=== PATIENT | male | born 1955 | race Two or more races ===

== ENCOUNTER 2017-08-02 14:13 | Emergency (ER) | payer OTHER ==
[2017-08-02] MEDS ORDERED: Ketorolac INJ* 30 MG/ML 1 ML VIAL IM ONE (16:26)
[2017-08-02] MEDS ORDERED: diPHENhydraMINE PO* 50 MG PO ONE (16:26)
[2017-08-02 17:35] LABS: Hematocrit 42 % (42-52); Hemoglobin 14.1 g/dl (14.0-18.0); Mean Corpuscular HGB Conc 34 g/dl (31-36); Mean Corpuscular Hemoglobin 31 pg (27-31); Mean Corpuscular Volume 91 fL (80-94); Mean Platelet Volume 8 um3 (7.4-10.4); Red Cell Distribution Width 14 % (10.5-15); White Blood Count 7.7 10^3/ul (3.5-10.8)
--- NOTE | 2017-08-02 17:35 | RAD ---
Indication: Scrotal and penile swelling. 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 Comparison: No relevant prior exams available on the [facility] [place] for comparison. Technique: Scrotal ultrasound. Report: Bilateral scrotal wall thickening. No visualized loculated scrotal wall abscess collection. 4.6 x 2.2 x 3.2 cm RIGHT testicle. 3.8 x 1.9 x 3.1 cm LEFT testicle. Normal bilateral testicular echotexture and symmetric normal range vascularity. No intratesticular lesions evident. Unremarkable 1.3 x 1.4 cm RIGHT epididymis head and 1.0 x 1.2 cm LEFT epididymis head. Physiologic small volume of scrotal fluid bilaterally. On the LEFT two small scrotoliths are visualized measuring up to 3 mm maximum dimension, a benign finding. IMPRESSION: 1. Significant scrotal wall thickening without visualized soft tissue plane abscess collection. 2. No evidence for epididymo-orchitis or testicular torsion.
[2017-08-02 17:37] LABS: Urine Bilirubin Negative (Negative); Urine Glucose Negative (Negative); Urine Nitrite Negative (Negative)
[2017-08-02 17:49] LABS: Albumin 3.9 g/dL (3.2-5.2); BUN/Creatinine Ratio 19.4 (8-20); C Reactive Protein 14.15 mg/L (< 5.00); Calcium 8.7 mg/dL (8.6-10.3); EGFR Non-African American 83.2 (>60); Globulin 2.9 g/dL (2-4); Potassium 3.8 mmol/L (3.5-5.0); Total Bilirubin 0.3 mg/dL (0.2-1.0); Total Protein 6.8 g/dL (6.4-8.9)
[2017-08-02] MEDS ORDERED: predniSONE TAB* 20 MG PO ONE (19:02)
[2017-08-02 19:32] VITALS: BP 150/86
--- NOTE | 2017-08-02 23:15 | ED ---
Edis Arnett Thomas, scribed for Rashida Abdullahi MD on 08/02/17 at 1603 . GI/ HPI - HPI Summary HPI Summary: The pt is a 61 y/o M presenting to the ED c/o swelling to his testicles that began five days ago but worsened yesterday night. There is also pruritus on his testicles, arms, and scrotum. There is no pruritus on his legs, chest, or any other areas. For the pruritus, he did take an OTC antifungal and hydrocortisone cream to no relief of his symptoms. Pt additionally c/o low back pain (with a Hx of DDD). He also has two dark black spots with irregular borders. There is one at the base of the penis on the front that measures 0.5 cm and another on the side that measures 0.3 cm in diameter. 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 Pt denies penile discharge, dysuria, and hematuria. He takes Lisinopril daily. PMHx: DDD (lower back), sciatica, HTN, borderline diabetes. PSHx: benign tumor removals in neck. 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 FHx: CAD, skin CA. Patients medications reviewed this visit. - History of Current Complaint Chief Complaint: EDGeneral Time Seen by Provider: 08/02/17 15:59 Stated Complaint: TESTICLE ITCH/SWELLING Hx Obtained From: Patient Onset/Duration: Started Days Ago - 5, Still Present, Worse Since - last night Timing: Constant Severity: Severe - testicles are approximately 3x of normal size Location of Pain: Other - Low back pain Additional Locations for Males: Scrotum - swollen to 3x of size Associated Signs and Symptoms: Positive: Back Pain - attributed to chronic DDD in lower back, Other: - POS: swelling to scrotum (onset 5 days ago). Negative: Discharge, Hematuria, Dysuria Additional Signs & Symptoms: Negative: Penile Discharge Aggravating Factor(s): Nothing Alleviating Factor(s): Nothing - Allergy/Home Medications Allergies/Adverse Reactions: Allergies Allergy/AdvReac Type Severity Reaction Status Date / Time No Known Allergies Allergy Verified 01/07/14 15:09 PMH/Surg Hx/FS Hx/Imm Hx Previously Healthy: No Endocrine/Hematology History: Denies: Hx Diabetes Cardiovascular History: Reports: Hx Angina, Hx Hypertension - PT TREATED WITH MEDICATION Denies: Hx Pacemaker/ICD Respiratory History: Reports: Hx Chronic Obstructive Pulmonary Disease (COPD), Other Respiratory Problems/Disorders - 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 Denies: Hx Asthma GI History: Reports: Hx Gastroesophageal Reflux Disease - HAS HAD IN THE PAST, NOT CURRENTLY TAKING RX History: Denies: Hx Dialysis, Hx Renal Disease Musculoskeletal History: Reports: Hx Arthritis - BACK, NECK, AND SPINE, Other Musculoskeletal History - SCIATICA BITAL, FREQUENTLY Sensory History: Reports: Hx Hearing Problem Denies: Hx Cataracts, Hx Contacts or Glasses, Hx Glaucoma, Hx Hearing Aid Opthamlomology History: Denies: Hx Cataracts, Hx Contacts or Glasses, Hx Glaucoma Psychiatric History: Reports: Hx Depression - DEPRESSION FOR LONG TIME, TAKES RX Denies: Hx Panic Disorder - Surgical History Surgery Procedure, Year, and Place: 08/06 ORIF LEFT WRIST- [facility] tumors removed from neck-benign Hx Anesthesia Reactions: No Infectious Disease History: Denies: Traveled Outside the [place] in Last 30 Days - Family History Known Family History: Positive: Cardiac Disease, Other - POS: skin CA - Social History Alcohol Use: Daily Alcohol Amount: 6 pk today Substance Use Type: Reports: None Substance Use Comment - Amount & Last Used: 15 YEARS CLEAN,COCAINE. Smoking Status (MU): Heavy Every Day Tobacco Smoker Type: Cigarettes Amount Used/How Often: 2-5/DAY Length of Time of Smoking/Using Tobacco: 49 YEARS Have You Smoked in the Last Year: Yes Review of Systems Negative: Fever Positive: other - POS: scrotal swelling (onset 5 days ago). Negative: dysuria, discharge, hematuria Positive: Other - POS: low back pain Positive: Other - POS: pruritus (to testicles, arms, and scrotum), two dark black spots with irregular borders All Other Systems Reviewed And Are Negative: Yes Physical Exam Triage Information Reviewed: Yes Vital Signs On Initial Exam: Initial Vitals Temp Pulse Resp BP Pulse Ox 98.8 F 82 16 151/98 99 08/02/17 14:20 08/02/17 14:20 08/02/17 14:20 08/02/17 14:20 08/02/17 14:20 Vital Signs Reviewed: Yes Appearance: Positive: Well-Appearing, Well-Nourished, Pain Distress Skin: Positive: Warm, Skin Color Reflects Adequate Perfusion, Other - Two dark black spots with irregular borders. There is one at the base of the penis on the front that measures 0.5 cm and another on the side that measures 0.3 cm in diameter. Head/Face: Positive: Normal Head/Face Inspection Eyes: Positive: Conjunctiva Clear ENT: Positive: Normal ENT inspection Neck: Positive: Supple Respiratory/Lung Sounds: Positive: Clear to Auscultation, Breath Sounds Present , Other - No respiratory distress Cardiovascular: Positive: RRR, Pulses are Symmetrical in both Upper and Lower Extremities, Other - Brisk cap refill. Negative: Murmur Abdomen Description: Positive: Nontender, Soft Bowel Sounds: Positive: Present Male Genital Exam: Positive: other - Scrotal swelling Musculoskeletal: Positive: Strength/ROM Intact Neurological: Positive: Sensory/Motor Intact, Alert, Oriented to Person Place, Time, Facial Symmetry, Speech Normal Psychiatric: Positive: Normal Diagnostics - Vital Signs Vital Signs Temp Pulse Resp BP Pulse Ox 08/02/17 14:20 98.8 F 82 16 151/98 99 - Laboratory Lab Results: Lab Results 08/02/17 08/02/17 08/02/17 Range/Units 17:20 17:25 17:25 WBC 7.7 (3.5-10.8) 10^3/ul RBC 4.60 (4.0-5.4) 10^6/ul Hgb 14.1 (14.0-18.0) g/dl Hct 42 (42-52) % MCV 91 (80-94) fL MCH 31 (27-31) pg MCHC 34 (31-36) g/dl RDW 14 (10.5-15) % Plt Count 218 (150-450) 10^3/ul MPV 8 (7.4-10.4) um3 Neut % (Auto) 73.2 (38-83) % Lymph % (Auto) 11.9 L (25-47) % [place] % (Auto) 9.6 H (1-9) % Eos % (Auto) 4.8 (0-6) % Baso % (Auto) 0.5 (0-2) % Absolute Neuts (auto) 5.7 (1.5-7.7) 10^3/ul Absolute Lymphs (auto) 0.9 L (1.0-4.8) 10^3/ul Absolute Monos (auto) 0.7 (0-0.8) 10^3/ul Absolute Eos (auto) 0.4 (0-0.6) 10^3/ul Absolute Basos (auto) 0 (0-0.2) 10^3/ul Absolute Nucleated RBC 0 10^3/ul Nucleated RBC % 0 Sodium 136 (133-145) mmol/L Potassium 3.8 (3.5-5.0) mmol/L Chloride 105 (101-111) mmol/L Carbon Dioxide 26 (22-32) mmol/L Anion Gap 5 (2-11) mmol/L BUN 18 (6-24) mg/dL Creatinine 0.93 (0.67-1.17) mg/dL Est GFR ( Amer) 107.0 (>60) Est GFR (Non-Af Amer) 83.2 (>60) BUN/Creatinine Ratio 19.4 (8-20) Glucose 101 H (70-100) mg/dL Lactic Acid (0.5-2.0) mmol/L Calcium 8.7 (8.6-10.3) mg/dL Total Bilirubin 0.30 (0.2-1.0) mg/dL AST 19 (13-39) U/L ALT 16 (7-52) U/L Alkaline Phosphatase 54 (34-104) U/L C-Reactive Protein 14.15 H (< 5.00) mg/L Total Protein 6.8 (6.4-8.9) g/dL Albumin 3.9 (3.2-5.2) g/dL Globulin 2.9 (2-4) g/dL Albumin/Globulin Ratio 1.3 (1-3) Urine Color Yellow Urine Appearance Clear Urine pH 6.0 (5-9) Ur Specific [place] 1.024 (1.010-1.030) Urine Protein Negative (Negative) Urine Ketones Negative (Negative) Urine Blood Negative (Negative) Urine Nitrate Negative (Negative) Urine Bilirubin Negative (Negative) Urine Urobilinogen Negative (Negative) Ur Leukocyte Esterase Negative (Negative) Urine Glucose Negative (Negative) 08/02/17 Range/Units 17:25 WBC (3.5-10.8) 10^3/ul RBC (4.0-5.4) 10^6/ul Hgb (14.0-18.0) g/dl Hct (42-52) % MCV (80-94) fL MCH (27-31) pg MCHC (31-36) g/dl RDW (10.5-15) % Plt Count (150-450) 10^3/ul MPV (7.4-10.4) um3 Neut % (Auto) (38-83) % Lymph % (Auto) (25-47) % [place] % (Auto) (1-9) % Eos % (Auto) (0-6) % Baso % (Auto) (0-2) % Absolute Neuts (auto) (1.5-7.7) 10^3/ul Absolute Lymphs (auto) (1.0-4.8) 10^3/ul Absolute Monos (auto) (0-0.8) 10^3/ul Absolute Eos (auto) (0-0.6) 10^3/ul Absolute Basos (auto) (0-0.2) 10^3/ul Absolute Nucleated RBC 10^3/ul Nucleated RBC % Sodium (133-145) mmol/L Potassium (3.5-5.0) mmol/L Chloride (101-111) mmol/L Carbon Dioxide (22-32) mmol/L Anion Gap (2-11) mmol/L BUN (6-24) mg/dL Creatinine (0.67-1.17) mg/dL Est GFR ( Amer) (>60) Est GFR (Non-Af Amer) (>60) BUN/Creatinine Ratio (8-20) Glucose (70-100) mg/dL Lactic Acid 0.8 (0.5-2.0) mmol/L Calcium (8.6-10.3) mg/dL Total Bilirubin (0.2-1.0) mg/dL AST (13-39) U/L ALT (7-52) U/L Alkaline Phosphatase (34-104) U/L C-Reactive Protein (< 5.00) mg/L Total Protein (6.4-8.9) g/dL Albumin (3.2-5.2) g/dL Globulin (2-4) g/dL Albumin/Globulin Ratio (1-3) Urine Color Urine Appearance Urine pH (5-9) Ur Specific [place] (1.010-1.030) Urine Protein (Negative) Urine Ketones (Negative) Urine Blood (Negative) Urine Nitrate (Negative) Urine Bilirubin (Negative) Urine Urobilinogen (Negative) Ur Leukocyte Esterase (Negative) Urine Glucose (Negative) Result Diagrams: 08/02/17 17:25 08/02/17 17:25 Lab Statement: Any lab studies that have been ordered have been reviewed, and results considered in the medical decision making process. - Additional Comments Diagnostic Additional Comments: Testicular US. Interpreted by radiologist. Impression: 1. Significant scrotal wall thickening without visualized soft tissue plane abscess collection. 2. No evidence for epididymo-orchitis or testicular torsion. ED Physician has reviewed this report and agrees. GIGU Course/Dx - Course Assessment/Plan: The pt presents with swelling to his testicles that began five days ago but worsened yesterday night. There is also pruritus on his testicles, arms, and scrotum. Pt additionally c/o low back pain (with a Hx of DDD). He also has two dark black spots with irregular borders in his genital region. Per nursing documentation, he was In the ED course the patient was given Toradol, Prednisone, and Benadryl. Bloodwork shows CRP 14.15. Testicular US reveals 1. Significant scrotal wall thickening without visualized soft tissue plane abscess collection. 2. No evidence for epididymo-orchitis or testicular torsion. ED Physician has reviewed this report and agrees. I consulted with Dr. Whatley, urology, who recommends a Testicular US. The patient is diagnosed with scrotal and penile edema, scrotal wall thickening, black penile lesions, and contact dermatitis due to poison rita. He is stable and discharged home. He will follow up with urology. He is agreeable to this plan. - Diagnoses Provider Diagnoses: Contact dermatitis due to poison rita, scrotal wall thickening, Scrotal and penile edema, Black penile lesions - Physician Notifications Discussed Care Of Patient With: Dustin Whatley Time Discussed With Above Provider: 16:34 Instructed by Provider To: Other - I consulted with Dr. Whatley, urology, who recommends a Testicular US. Discharge - Discharge Plan Condition: Stable Disposition: HOME Prescriptions: predniSONE TAB* [Deltasone TAB*] 40 mg PO DAILY #10 tab Patient Education Materials: Poison Rita (ED) Referrals: Dustin Whatley MD [Medical Doctor] - 3 Days Efrain Chaidez MD [Primary Care Provider] - Additional Instructions: The ultrasound does not show any serious problem with your testicles or scrotum. The itching and swelling are likely from poison rita or poison oak that you contracted while you were in the [place]. You may continue to use the over the counter creams that you started yesterday. We also gave you toradol 30mg injectable for your back pain, benadryl 50mg for the itching and prednisone 60mg for the swelling. You should continue benadryl 50mg every 4-6 hrs for at least the next 48 hrs ( so 50mg four times a day) and take the prednisone 40mg daily for the next 5 days. Elevate the scrotum on a pillow. You may try ice. Follow up with urology, Dr. Whatley if no improvement. Return to the ER if any new or worsening symptoms. The documentation as recorded by the Edis de luna Thomas accurately reflects the service I personally performed and the decisions made by me, Rashida Abdullahi MD.
== END 2017-08-02 19:30 | disposition home or self-care (01) ==
LOC: ED 14:13
DX: L23.7 Allergic contact dermatitis due to plants, except food (principal); L98.9 Disorder of the skin and subcutaneous tissue, unspecified; N50.89 Other specified disorders of the male genital organs; I10 Essential (primary) hypertension; J44.9 Chronic obstructive pulmonary disease, unspecified; K21.9 Gastro-esophageal reflux disease without esophagitis; M19.90 Unspecified osteoarthritis, unspecified site; F17.210 Nicotine dependence, cigarettes, uncomplicated; R73.03 Prediabetes; M54.30 Sciatica, unspecified side; M51.36 Other intervertebral disc degeneration, lumbar region
CPT/HCPCS: 36415; 76870; 80053; 81003; 83605; 85025; 86140; 87491; 87591; 99283; A9270-GY; J1885; J7512

== ENCOUNTER 2019-01-17 05:26 | Emergency (ER) | payer OTHER ==
[2019-01-17] MEDS ORDERED: diPHENhydraMINE IV* 50 MG/ML 1 ml VIAL (BENADRYL) IV ONE (05:34)
[2019-01-17] MEDS ORDERED: EPINEPHRINE 1 MG/ML 1 ML VIAL IM ONE (05:35)
[2019-01-17] MEDS ORDERED: predniSONE TAB* 20 MG PO ONE (05:35)
[2019-01-17] MEDS ORDERED: Famotidine IV* 10 MG/ML 2 ML (20 mg) IV SLOW PU ONE (05:35)
[2019-01-17] MEDS ORDERED: Famotidine IV* 10 MG/ML 2 ML (20 mg) ONE (05:42)
[2019-01-17] MEDS ORDERED: EPINEPHRINE 1 MG/ML 1 ML VIAL ONE (05:42)
[2019-01-17] MEDS ORDERED: diPHENhydraMINE IV* 50 MG/ML 1 ml VIAL (BENADRYL) ONE (05:42)
--- NOTE | 2019-01-17 05:46 | ED ---
Allergic Reaction/Systemic - HPI Summary HPI Summary: A 63 y/o male presents to [facility] with a chief complaint of a possible allergic reaction the morning of 01/17/19. The patient claims that he was asleep and woke up itching. He reports that he has had this happen before. He denies N/V/D or abdominal pain. He also c/o chest tightness and SOB. Per nurses note, the patient rated his pain as a 5/10 in severity. Vital signs while in room HR: 113 bpm, O2 Sat 96. - History of Current Complaint Chief Complaint: EDAllergicReaction Time Seen by Provider: 01/17/19 05:32 Hx Obtained From: Patient Onset/Duration: Sudden Onset, Started minutes ago, Still Present Timing: Constant, Lasting Minutes Character: Pruritus Aggravating Factor(s): Nothing Alleviating Factor(s): Nothing Associated Signs And Symptoms: Negative: Abdominal Pain, Nausea, Vomiting - Allergies/Home Medications Allergies/Adverse Reactions: Allergies Allergy/AdvReac Type Severity Reaction Status Date / Time No Known Allergies Allergy Verified 11/04/17 09:12 PMH/Surg Hx/FS Hx/Imm Hx Endocrine/Hematology History: Denies: Hx Diabetes - pre-diabetes, not on medication Cardiovascular History: Reports: Hx Angina, Hx Hypercholesterolemia, Hx Hypertension - PT TREATED WITH MEDICATION Denies: Hx Pacemaker/ICD Respiratory History: Reports: Hx Chronic Obstructive Pulmonary Disease (COPD), Other Respiratory Problems/Disorders - 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 Denies: Hx Asthma GI History: Reports: Hx Gastroesophageal Reflux Disease History: Denies: Hx Dialysis, Hx Renal Disease Musculoskeletal History: Reports: Hx Arthritis - BACK, NECK, AND SPINE; cervical spine surgery, Other Musculoskeletal History - SCIATICA Sensory History: Reports: Hx Hearing Problem Denies: Hx Cataracts, Hx Contacts or Glasses, Hx Glaucoma, Hx Hearing Aid Opthamlomology History: Denies: Hx Cataracts, Hx Contacts or Glasses, Hx Glaucoma Neurological History: Reports: Other Neuro Impairments/Disorders - PAIN CLINIC PT Psychiatric History: Reports: Hx Depression, Hx Substance Abuse - former cocaine , clean x 15 yrs Denies: Hx Panic Disorder - Surgical History Surgery Procedure, Year, and Place: 08/06 ORIF LEFT WRIST- [facility] tumors removed from neck-benign. cervical spine surgery "for pinched nerves" 2013 - [place] Hx Anesthesia Reactions: No - Family History Known Family History: Positive: Cardiac Disease, Other - POS: skin CA - Social History Alcohol Use: None Substance Use Type: Reports: None Substance Use Comment - Amount & Last Used: 15 YEARS CLEAN,COCAINE. Smoking Status (MU): Light Every Day Tobacco Smoker Type: Cigarettes Amount Used/How Often: 5-6 cig/week Length of Time of Smoking/Using Tobacco: 49 YEARS Have You Smoked in the Last Year: Yes Review of Systems Positive: Other - positive: chest tightness Positive: Shortness Of Breath Negative: Abdominal Pain, Vomiting, Diarrhea, Nausea Positive: Other - itching All Other Systems Reviewed And Are Negative: Yes Physical Exam - Summary Physical Exam Summary: Appearance: Well-appearing, Well-nourished, lying in bed comfortably Skin: diffuse urticarial trunk lower, extremities and neck Eyes: sclera anicteric, no conjunctival pallor ENT: mucous membranes moist, pharynx appears normal Neck: Supple, nontender Respiratory: Clear to auscultation, no signs of respiratory distress Cardiovascular: Normal S1, S2. No murmurs. Normal distal pulses in tibial and radial bilaterally. Abdomen: Soft, nontender, normal active bowel sounds present Musculoskeletal: Normal, Strength/ROM Intact Neurological: A&Ox3, awake and alert, mentation is normal, speech is fluent and appropriate Psychiatric: affect is normal, does not appear anxious or depressed Triage Information Reviewed: Yes Vital Signs Reviewed: Yes Allergic Reaction Course/Dx - Course Course Of Treatment: A 63 y/o male presents to [facility] with a chief complaint of a possible allergic reaction the morning of 01/17/19. The patient claims that he was asleep and woke up itching. He reports that he has had this happen before. He denies N/V/D or abdominal pain. He also c/o chest tightness and SOB. Per nurses note, the patient rated his pain as a 5/10 in severity. The physical exam revealed diffuse urticarial trunk lower, extremities and neck. In the ED course the patient was given 25mg Benadryl IV, 0.3mg Epinephrine IM, 20mg Famotidine IV and 40mg Prednisone PO. The patient will be discharged with prescriptions for prednisone and epinephrine. He is agreeable with this plan. - Diagnoses Provider Diagnoses: Urticaria Discharge - Sign-Out/Discharge Documenting (check all that apply): Patient Departure - DC Patient Received Moderate/Deep Sedation with Procedure: No - Discharge Plan Condition: Improved Disposition: HOME Prescriptions: EPINEPHrine [Epipen 2-Asim] 0.3 mg IM ONCE PRN #1 inj PRN Reason: Shortness Of Breath predniSONE TAB* [Deltasone 20 MG TAB*] 40 mg PO DAILY 4 Days #8 tab Patient Education Materials: Urticaria (ED) Referrals: Efrain Chaidez MD [Primary Care Provider] - 1 Week - Billing Disposition and Condition Condition: IMPROVED Disposition: Home - Attestation Statements Document Initiated by Jasmyn: Yes Documenting Scribe: Pascual Curran Provider For Whom Jasmyn is Documenting (Include Credential): Nickolas Minor MD Scribe Attestation: Pascual Arnett scribed for Nickolas Mionr MD on 01/19/19 at 1609. Scribe Documentation Reviewed: Yes Provider Attestation: The documentation as recorded by the Pascual de luna accurately reflects the service I personally performed and the decisions made by me, Nickolas Minor MD Status of Scribe Document: Viewed
[2019-01-17 07:05] VITALS: BP 131/92
== END 2019-01-17 07:04 | disposition home or self-care (01) ==
LOC: ED 05:26
DX: L50.9 Urticaria, unspecified (principal); R07.89 Other chest pain; R06.02 Shortness of breath; I10 Essential (primary) hypertension; F17.210 Nicotine dependence, cigarettes, uncomplicated
CPT/HCPCS: 96372; 96374; 96375; 99282; J1200; J7512

== ENCOUNTER 2019-06-21 15:24 | Emergency (ER) | payer OTHER ==
[2019-06-21] MEDS ORDERED: Naproxen TAB* 250 MG PO ONE (15:56)
[2019-06-21] MEDS ORDERED: oxyCODONE/Acetamin 5/325 MG* TAB PO ONE (15:56)
--- NOTE | 2019-06-21 16:01 | ED ---
HPI Chest Pain - HPI Summary HPI Summary: 63-year-old male presents with complaints of left chest wall pain. States 9 days ago he slipped on some stairs striking the left side of his chest on the edge of the stairs. Reports pain worsens with movement, deep breath, and cough. He has not taken any [id number] analgesics. Denies fever, chills , chest pain, palpitations, shortness of breath, abdominal pain, nausea, vomiting, or hematuria. - History of Current Complaint Chief Complaint: EDChestWallPain Time Seen by Provider: 06/21/19 15:49 Hx Obtained From: Patient Pain Intensity: 10 - Allergy/Home Medications Allergies/Adverse Reactions: Allergies Allergy/AdvReac Type Severity Reaction Status Date / Time No Known Allergies Allergy Verified 11/04/17 09:12 Home Medications: Home Medications Budesonide/Formote 160/4.5(NF) [Symbicort 160/4.5 (NF)] 1 puff INH DAILY [History Confirmed 06/21/19] Cetirizine HCl 10 mg PO DAILY 06/21/19 [History Confirmed 06/21/19] Lisinopril TAB* [Prinivil TAB 5 MG*] 5 mg PO DAILY 06/21/19 [History Confirmed 06/21/19] Omeprazole 40 mg PO DAILY 06/21/19 [History Confirmed 06/21/19] PMH/Surg Hx/FS Hx/Imm Hx Endocrine/Hematology History: Denies: Hx Diabetes - pre-diabetes, not on medication Cardiovascular History: Reports: Hx Angina, Hx Hypercholesterolemia, Hx Hypertension - PT TREATED WITH MEDICATION Denies: Hx Pacemaker/ICD Respiratory History: Reports: Hx Chronic Obstructive Pulmonary Disease (COPD), Other Respiratory Problems/Disorders - 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 Denies: Hx Asthma GI History: Reports: Hx Gastroesophageal Reflux Disease History: Denies: Hx Dialysis, Hx Renal Disease Musculoskeletal History: Reports: Hx Arthritis - BACK, NECK, AND SPINE; cervical spine surgery, Other Musculoskeletal History - SCIATICA Sensory History: Reports: Hx Hearing Problem Denies: Hx Cataracts, Hx Contacts or Glasses, Hx Glaucoma, Hx Hearing Aid Opthamlomology History: Denies: Hx Cataracts, Hx Contacts or Glasses, Hx Glaucoma Neurological History: Reports: Other Neuro Impairments/Disorders - PAIN CLINIC PT Psychiatric History: Reports: Hx Depression, Hx Substance Abuse - former cocaine , clean x 15 yrs Denies: Hx Panic Disorder - Surgical History Surgery Procedure, Year, and Place: 08/06 ORIF LEFT WRIST- [facility] tumors removed from neck-benign. cervical spine surgery "for pinched nerves" 2013 - wing Hx Anesthesia Reactions: No Infectious Disease History: No Infectious Disease History: Denies: Traveled Outside the [place] in Last 30 Days - Family History Known Family History: Positive: Cardiac Disease, Other - POS: skin CA - Social History Occupation: Unemployed Lives: With Family Alcohol Use: Daily Alcohol Amount: 6-12 beers daily Substance Use Type: Reports: None Substance Use Comment - Amount & Last Used: 15 YEARS CLEAN,COCAINE. Smoking Status (MU): Heavy Every Day Tobacco Smoker Type: Cigarettes Amount Used/How Often: 5-6 cig/week Length of Time of Smoking/Using Tobacco: 49 YEARS Have You Smoked in the Last Year: Yes Review of Systems Negative: Fever, Chills Positive: Chest Pain - Left chest wall. Negative: Palpitations Negative: Shortness Of Breath, Cough Negative: Abdominal Pain, Vomiting, Diarrhea, Nausea Negative: hematuria Musculoskeletal: Other - See HPI Negative: Rash, Bruising Neurological: Negative All Other Systems Reviewed And Are Negative: Yes Physical Exam - Summary Physical Exam Summary: GENERAL APPEARANCE: Well developed, well nourished, alert and cooperative, and appears to be in no acute distress. HEAD: Atraumatic. Normocephalic. NECK: Neck supple, non-tender. Full ROM. CARDIAC: Normal S1 and S2. No S3, S4 or murmurs. Rhythm is regular. There is no peripheral edema, cyanosis or pallor. Extremities are warm and well perfused. Capillary refill is less than 2 seconds. Peripheral pulses intact. LUNGS: Clear to auscultation without rales, rhonchi, wheezing or diminished breath sounds. Left anterolateral chest wall tenderness without crepitus or deformity. No bruising noted. ABDOMEN: Positive bowel sounds. Soft, nondistended, nontender. No guarding or rebound. No masses or hepatosplenomegally. MUSKULOSKELETAL: ROM intact to all extremities. No joint erythema or tenderness. Normal muscular development. Normal gait. BACK: Examination of the spine reveals no spinal deformity or tenderness, decreased range of motion or muscular spasm. SKIN: Skin normal color, texture and turgor with no lesions or eruptions. Triage Information Reviewed: Yes Vital Signs On Initial Exam: Initial Vitals Temp Pulse Resp BP Pulse Ox 98.7 F 84 20 149/95 96 06/21/19 15:27 06/21/19 15:27 06/21/19 15:27 06/21/19 15:27 06/21/19 15:27 Vital Signs Reviewed: Yes Diagnostics - Vital Signs Vital Signs Temp Pulse Resp BP Pulse Ox 06/21/19 15:27 98.7 F 84 20 149/95 96 - Laboratory Lab Statement: Any lab studies that have been ordered have been reviewed, and results considered in the medical decision making process. - Radiology No standard instances Radiology Interpretation Completed By: Radiologist Summary of Radiographic Findings: Order Information: RIBS LT UNI W/PA CH MIN 3 VWS. Accession Number: [id number]. CPT: 62406. INDICATION: Left-sided chest wall pain after a fall. COMPARISON: Chest x-ray June 03, 2018. TECHNIQUE: 6 views of the left ribs were obtained. FINDINGS: No fracture or significant focal osseous abnormality is seen. No pneumothorax is apparent. Limited views demonstrate grossly clear lungs. IMPRESSION: No radiographically apparent displaced rib fracture or pneumothorax. Chest Pain Course/Dx - Course Course Of Treatment: 63-year-old male presents with complaints of left chest wall pain. States 9 days ago he slipped on some stairs striking the left side of his chest on the edge of the stairs. Reports pain worsens with movement, deep breath, and cough. He has not taken any [id number] analgesics. Denies fever, chills, chest pain, palpitations, shortness of breath, abdominal pain, nausea, vomiting, or hematuria. Discharge - Sign-Out/Discharge Documenting (check all that apply): Patient Departure Patient Received Moderate/Deep Sedation with Procedure: No - Discharge Plan Condition: Stable Disposition: HOME Prescriptions: Naproxen [Naproxen 500 mg tab] 500 mg PO Q12HR #30 tablet Patient Education Materials: Chest Wall Pain (ED) Referrals: Flory Dooley MD [Primary Care Provider] - 3 Days Additional Instructions: The chest x-ray and rib x-rays are performed in the ER tonight showed no evidence of a fracture. Take naproxen 500 mg 1 tablet every 12 hours with food for the next 5 days and then take every 12 hours as needed. Apply a heating pad to the affected area for 15-20 minutes at least 4 times a day to help with the pain. Use a pillow or folded blanket to splint your chest if you need to cough or sneeze. Follow-up with your primary care provider in 3 days if symptoms are not improving. Return to the emergency room if you develop a fever greater than 100.5 F, have worsening chest pain, shortness of breath, or any worsening of symptoms. - Billing Disposition and Condition Condition: STABLE Disposition: Home
[2019-06-21 17:52] VITALS: BP 148/90
== END 2019-06-21 17:51 | disposition home or self-care (01) ==
LOC: ED 15:24
DX: R07.89 Other chest pain (principal); W10.9XXA Fall (on) (from) unspecified stairs and steps, initial encounter; Y92.9 Unspecified place or not applicable; R73.03 Prediabetes; I10 Essential (primary) hypertension; J44.9 Chronic obstructive pulmonary disease, unspecified; Z82.49 Family history of ischemic heart disease and other diseases of the circulatory system; Z80.8 Family history of malignant neoplasm of other organs or systems; F17.210 Nicotine dependence, cigarettes, uncomplicated
CPT/HCPCS: 99282; A9270-GY